=== PATIENT | female | born 1990 | race Caucasian/White ===

== ENCOUNTER 2018-07-18 12:13 | Emergency (ER) | payer OTHER ==
[2018-07-18 13:46] LABS: BASO % 0.4 % (0.0-1.0); EOS # 0.2 10^3/uL (0.0-0.50); EOS % 2.4 % (0.0-3.0); GLUCOSE, URINE (UA) MANUAL NEGATIVE (NEGATIVE); HEMATOCRIT 40.7 % (36.0-47.0); HEMOGLOBIN 13.9 g/dl (12.0-15.5); IMMATURE GRANULOCYTE % 0.3 % (0-3.0); KETONE, URINE MANUAL OBSCURED mg/dL (NEGATIVE); LYMPH # 1.6 10^3/uL (1.5-6.5); LYMPH % 22.9 % (24.0-44.0); MEAN CORPUSCULAR HGB CONC 34.2 g/dl (32.0-36.5); MEAN CORPUSCULAR VOLUME 87.9 fl (80.0-96.0); MONO # 0.7 10^3/uL (0.0-0.8); MONO % 10.4 % (0.0-5.0); NEUTROPHILS # 4.5 10^3/uL (1.8-7.7); NEUTROPHILS % 63.6 % (36.0-66.0); PLATELET COUNT, AUTOMATED 298 10^3/uL (150-450); PROTEIN, URINE MANUAL REFLEX 3+ mg/dL (NEGATIVE); RED BLOOD COUNT 4.63 10^6/uL (4.00-5.40); RED CELL DISTRIBUTION WIDTH 12.5 % (11.5-14.5); SP GRAVITY,URINE MANUAL REFLEX 1.009 (1.002-1.035); WHITE BLOOD COUNT 7.1 10^3/uL (4.0-10.0)
[2018-07-18 13:47] LABS: BILIRUBIN, URINE MANUAL OBSCURED (NEGATIVE); BLOOD URINE MANUAL RFX POSITIVE (NEGATIVE); MICROSCOPIC INDICATED? RFX YES (NO); NITRITE, URINE MANUAL RFX OBSCURED (NEGATIVE); UROBILINOGEN, URINE MANUAL OBSCURED mg/dl (NORMAL)
[2018-07-18 13:58] LABS: RBC, URINE TNTC /hpf (0-3); WBC, URINE MAN RFX TNTC /hpf (0-3)
[2018-07-18 13:59] LABS: AMORPHOUS SEDIMENT, URINE SMALL AMOUNT (NEGATIVE); BACTERIA, URINE SMALL AMOUNT; HYALINE CAST, URINE NONE SEEN /lpf (0-1); MICROSCOPIC EXAM PERFORMED; MUCUS, URINE SMALL AMOUNT (NEGATIVE); SQUAMOUS EPITHELIAL CELL URINE SMALL AMOUNT /hpf (SMALL AMT)
[2018-07-18 14:13] LABS: HCG, SERUM QUANTITATIVE 2 MIU/ML
[2018-07-18 15:23] LABS: CHLAMYDIA DNA AMPLIFICATION NEGATIVE (NEGATIVE); GC DNA AMPLIFICATION NEGATIVE (NEGATIVE)
== END 2018-07-18 15:19 | disposition home or self-care (01) ==
LOC: M ED 12:13
DX: O20.0 Threatened abortion (principal); O23.31 Infections of other parts of urinary tract in pregnancy, first trimester; O99.281 Endocrine, nutritional and metabolic diseases complicating pregnancy, first trimester; E28.2 Polycystic ovarian syndrome; Z3A.00 Weeks of gestation of pregnancy not specified
CPT/HCPCS: 76801

== ENCOUNTER → 2018-07-20 | Outpatient (CLI) | payer OTHER ==
[2018-07-20 19:28] LABS: HCG, SERUM QUANTITATIVE < 1.0 MIU/ML
== END ==
LOC: M LRY 12:55
DX: O03.9 Complete or unspecified spontaneous abortion without complication (principal)
CPT/HCPCS: 84702

== ENCOUNTER → 2018-08-09 | Outpatient (CLI) | payer OTHER ==
[2018-08-09 16:02] LABS: FREE T4 0.81 NG/DL (0.76-1.46)
[2018-08-09 16:02] LABS: GLUCOSE, FASTING 69 MG/DL (70-100)
== END ==
LOC: M LRY 09:55
DX: E28.2 Polycystic ovarian syndrome (principal)
CPT/HCPCS: 82947

== ENCOUNTER → 2018-12-27 | Outpatient (CLI) | payer OTHER ==
[~2018-12-27] MED LIST: KEFL500C17 PO
[2018-12-27 13:54] LABS: HCG, SERUM QUALITATIVE NEGATIVE (NEGATIVE)
[2018-12-27 14:20] LABS: FREE T4 0.75 NG/DL (0.76-1.46)
== END ==
LOC: M SMT 11:22
PROVIDERS: ATTEND Advanced Practice Midwife
DX: E03.9 Hypothyroidism, unspecified (principal); N92.6 Irregular menstruation, unspecified
CPT/HCPCS: 36415; 84439; 84443; 84703; G0123

== ENCOUNTER → 2018-12-27 | Outpatient (REF) | payer OTHER | LOC: M LAB REF 13:24 | PROVIDERS: ATTEND Advanced Practice Midwife | DX: Z12.4 Encounter for screening for malignant neoplasm of cervix (principal) ==

== ENCOUNTER → 2019-11-11 | Outpatient (CLI) | payer OTHER ==
[2019-11-11 18:26] LABS: BASO % 0.3 % (0.0-1.0); EOS # 0.1 10^3/uL (0.0-0.5); EOS % 1.1 % (0.0-3.0); HEMATOCRIT 40.8 % (36.0-47.0); HEMOGLOBIN 13.5 g/dl (12.0-15.5); LYMPH # 1.9 10^3/uL (1.5-5.0); LYMPH % 14.7 % (24.0-44.0); MEAN CORPUSCULAR HGB CONC 33.1 g/dl (32.0-36.5); MEAN CORPUSCULAR VOLUME 90.7 fl (80.0-96.0); MONO # 0.9 10^3/uL (0.0-0.8); MONO % 7.2 % (0.0-5.0); NEUTROPHILS # 9.8 10^3/uL (1.5-8.5); NEUTROPHILS % 76.2 % (36.0-66.0); PLATELET COUNT, AUTOMATED 272 10^3/uL (150-450); WHITE BLOOD COUNT 12.9 10^3/uL (4.0-10.0)
[2019-11-11 20:41] LABS: CHLAMYDIA DNA AMPLIFICATION NEGATIVE (NEGATIVE); GC DNA AMPLIFICATION NEGATIVE (NEGATIVE)
[2019-11-12 10:43] LABS: HEPATITIS C VIRUS ABY INDEX < 0.0 INDEX (<0.8); HIV 1&2 SCREEN CENTAUR NEGATIVE (NEGATIVE); RUBELLA IgG QUALITATIVE IMMUNE (IMMUNE)
== END ==
LOC: M PLALAB 15:35
PROVIDERS: ATTEND Advanced Practice Midwife
DX: Z34.91 Encounter for supervision of normal pregnancy, unspecified, first trimester (principal); Z3A.00 Weeks of gestation of pregnancy not specified

== ENCOUNTER → 2019-11-25 | Outpatient (CLI) | payer OTHER | LOC: M PLALAB 10:21 | PROVIDERS: ATTEND Advanced Practice Midwife | DX: Z34.81 Encounter for supervision of other normal pregnancy, first trimester (principal); Z3A.00 Weeks of gestation of pregnancy not specified ==

== ENCOUNTER 2019-12-07 18:57 | Emergency (ER) | payer OTHER ==
[~2019-12-07] VITALS: Ht 172.7 cm; Wt 95.8 kg
[2019-12-07] MEDS ORDERED: PREN29TA4 PO (19:03)
[2019-12-07 20:54] LABS: APPEARANCE, URINE HAZY (CLEAR); BACTERIA, URINE AUTO 1+ (NEGATIVE); BILIRUBIN, URINE AUTO NEGATIVE (NEGATIVE); BLOOD, URINE BLOOD 1+ (NEGATIVE); COLOR, URINE YELLOW (YELLOW); GLUCOSE, URINE (UA) AUTO NEGATIVE (NEGATIVE); KETONE, URINE AUTO NEGATIVE (NEGATIVE); LEUKOCYTE ESTERASE, URINE AUTO NEGATIVE (NEGATIVE); MUCUS, URINE SMALL (NEGATIVE); NITRITE, URINE AUTO NEGATIVE (NEGATIVE); PROTEIN, URINE AUTO NEGATIVE (NEGATIVE); RBC, URINE AUTO 1 /HPF (0-3); SPECIFIC GRAVITY URINE AUTO 1.021 (1.002-1.035); SQUAMOUS EPITHELIAL CELL UR AU 6 /HPF (0-6); UROBILINOGEN, URINE AUTO 0.2 mg/dL (0.0-2.0); WBC, URINE AUTO 1 /HPF (0-3)
--- NOTE | 2019-12-07 20:57 | REPVR ---
PROCEDURE INFORMATION: Exam: US First Trimester, Transabdominal Exam date and time: 12/07/2019 8:19 PM Age: 29 years old Clinical indication: Injury or trauma; Injury history: Dog jumped on stomach; Initial encounter; Blunt trauma; Lower; Injury date: 12/07/19; ; Additional info: Dog jumped on stomach, now with cramping, no bleeding TECHNIQUE: Imaging protocol: Real-time transabdominal obstetrical ultrasound of the maternal pelvis and a first trimester , less than 14 weeks 0 days, with image documentation. COMPARISON: No relevant prior studies available. FINDINGS: GESTATION: Gestation: Single gestational sac within the uterus. Single living fetus demonstrated within the gestational sac with a crown-rump length of 6.2 cm. Heart rate: heart rate 163 bpm. Placenta: Anterior placenta. No subchorionic hemorrhage. Amniotic fluid: Amniotic and coelomic fluid are normal for gestational age. BIOMETRY: Estimated gestational age: Gestational age based on crown-rump length is 12 weeks 5 days which corresponds to a LMP of 09/09/2019. Estimated due date: JAYCE 06/15/2020. MATERNAL: Uterus: Unremarkable. Cervix: Unremarkable. Right adnexa: Unremarkable. Left adnexa: Unremarkable. Intraperitoneal: No intraperitoneal free fluid. IMPRESSION: Unremarkable 1st trimester scan at 12 weeks 5 days as measured by LMP and crown-rump length. Detailed structural survey can be performed between 19-20 weeks if clinically desired. Electronically signed by: Aamir Campos On 12/07/2019 20:57:04 PM
[2019-12-07 22:15] VITALS: BP 125/69
[2019-12-07 23:10] LABS: CHLAMYDIA DNA AMPLIFICATION NEGATIVE (NEGATIVE); GC DNA AMPLIFICATION NEGATIVE (NEGATIVE)
== END 2019-12-07 22:30 | disposition home or self-care (01) ==
LOC: M ED 18:57
DX: O26.899 Other specified pregnancy related conditions, unspecified trimester (principal); R10.9 Unspecified abdominal pain; O99.280 Endocrine, nutritional and metabolic diseases complicating pregnancy, unspecified trimester; E28.2 Polycystic ovarian syndrome; Z3A.12 12 weeks gestation of pregnancy

== ENCOUNTER → 2020-01-15 | Outpatient (CLI) | payer OTHER ==
[~2020-01-15] MED LIST changes: +PREN29TA4 PO
--- NOTE | 2020-01-15 10:25 | REP ---
OB ULTRASOUND: Real-time sonographic evaluation of the gravid uterus is performed. There is a single living intrauterine gestation. The estimated gestational age is 18 weeks 2 days, EDC 06/15/2020. Today's measurements indicate appropriate growth. BPD 38 mm = 17 weeks 4 days, 22nd percentile HC 142 mm = 17 weeks 4 days, 21st percentile AC 116 mm = 17 weeks 3 days, 27th percentile Femur length 26 mm = 17 weeks 5 days, 33rd percentile HC/AC ratio 1.22 within normal range. Estimated weight 199 grams, 21st percentile. Cervix is closed and measures 3.6 cm in length. heart rate 165 beats per minute. SEEN/GROSSLY UNREMARKABLE Lateral ventricles Yes Posterior fossa Yes Upper lip No Four-chamber heart Yes LVOT Yes RVOT Yes Stomach Yes Cord insertion Yes Three vessel cord Yes Kidneys Yes Bladder Yes Spine No position: Transverse with head toward the maternal left side. Placenta: Posterior and grade 0 with no previa or abruption. Amniotic fluid: Within normal limits.
== END ==
LOC: M WHC 08:59
PROVIDERS: ATTEND Nurse Practitioner Women's Health
DX: Z34.82 Encounter for supervision of other normal pregnancy, second trimester (principal); Z3A.14 14 weeks gestation of pregnancy

== ENCOUNTER → 2020-01-15 | Outpatient (REF) | payer OTHER ==
[2020-01-15 14:00] LABS: FREE T4 0.82 NG/DL (0.76-1.46); THYROID STIMULATING HORMONE 3.54 uIU/ML (0.358-3.740)
== END ==
LOC: M PLALAB 10:49
PROVIDERS: ATTEND Nurse Practitioner Women's Health
DX: E03.9 Hypothyroidism, unspecified (principal)

== ENCOUNTER → 2020-02-18 | Outpatient (CLI) | payer OTHER ==
--- NOTE | 2020-02-19 03:25 | REP ---
Clinical: Anatomical evaluation. Comparison: 01/15/2020 Findings: Examination demonstrates a single live intrauterine in variable presentation. motion is identified by technologist. Placenta is noted posterior and grade I without evidence for placenta previa or abruption. Amniotic fluid volume is normal. Cervix measures 4.3 cm in length and appears closed. No evidence for nuchal cord. Gestational age by LMP 23 weeks 1 day with JAYCE 06/15/2020 . Gestational age by current measurements 22 weeks 2 days with JAYCE 06/21/2020 . FHR equals 150 beats per minute. Estimated weight 535 grams ( 36 percentile). Anatomical assessment demonstrates normal structures including cranium, facial features, lungs, four-chamber heart/ventricular outflow tracts, diaphragm, stomach, cord insertion/three-vessel cord, kidneys/bladder, and spine. Impression: single live intrauterine in variable presentation demonstrating appropriate interval growth. In conjunction with prior examination anatomical assessment is complete and normal.
== END ==
LOC: M WHC 15:23
PROVIDERS: ATTEND Nurse Practitioner Women's Health
DX: Z36.2 Encounter for other antenatal screening follow-up (principal); Z3A.22 22 weeks gestation of pregnancy

== ENCOUNTER → 2020-03-05 | Outpatient (REF) | payer OTHER ==
[2020-03-05 11:15] LABS: HEMATOCRIT 33.8 % (36.0-47.0); HEMOGLOBIN 11.4 g/dl (12.0-15.5); MEAN CORPUSCULAR HEMOGLOBIN 31.1 pg (27.0-33.0); MEAN CORPUSCULAR HGB CONC 33.7 g/dl (32.0-36.5); MEAN CORPUSCULAR VOLUME 92.3 fl (80.0-96.0); PLATELET COUNT, AUTOMATED 228 10^3/uL (150-450); RED BLOOD COUNT 3.66 10^6/uL (4.00-5.40); WHITE BLOOD COUNT 11.3 10^3/uL (4.0-10.0)
== END ==
LOC: M PLALAB 08:54
PROVIDERS: ATTEND Nurse Practitioner Women's Health
DX: Z3A.22 22 weeks gestation of pregnancy (principal)